=== PATIENT | female | born 1990 | race Caucasian/White ===

== ENCOUNTER 2016-09-14 15:05 | Emergency (ER) | payer MEDICAID ==
[~2016-09-14] VITALS: Ht 157.5 cm; Wt 60.5 kg
[~2016-09-14 15:05] MED LIST: IBUP-232 PO; NORC5TAB PO; ORPH100T99 PO
[2016-09-14 15:14] VITALS: BP 132/79; PULSE 97; RESP 18; TEMP 98.6; O2SAT 100
[2016-09-14 15:29] LABS: BLOOD, URINE LARGE (NEG); GLUCOSE,URINE NEG (NEG); KETONE, URINE NEG (NEG); NITRITE,URINE NEG (NEG); PH, URINE 6.5 (5.0-8.5)
[2016-09-14 16:22] LABS: METHOD OF COLLECTION VOIDED; URINE COLOR LIGHT-RED (YELLW/STRAW)
[2016-09-14 16:23] LABS: RBC, URINE INNUM /hpf (0-3)
[2016-09-14 16:24] LABS: BACTERIA, URINE RARE /hpf; COMMENT (UR) CULTURE INDICATED; CULTURE IF INDICATED CULTURE INDICATED; SQUAMOUS EPITHELIAL CELL URINE >8 /hpf (0-5)
[2016-09-14] MEDS ORDERED: MORPHINE SULFATE 4 MG/ML INJ IM ONE (17:00)
--- NOTE | 2016-09-14 17:04 | PD ---
HPI . Possible miscarriage Chief Complaint: Related Problem Time Seen by Provider: 16:24 Travel History International Travel<30 days: No Contact w/Intl Traveler<30days: No Traveled to known affect area: No History of Present Illness HPI Patient presents complaining with vaginal spotting for the last couple days. Spotting had actually improved. However, she developed pelvic cramping today associated with the passage of tissue. She reports last normal menstrual period was July 17. She reports 2 positive home tests a couple of weeks ago. [facility] Past Medical History Medical History: Denies Significant Hx Diminished Hearing: No Immunizations Current: Yes Tetanus Vaccination: > 5 Years Influenza Vaccination: No ?: Past Surgical History Oral Surgery: Yes (WISDOM TEETH X 4) Social History Alcohol Use: No Tobacco Use: Yes (5-7 CIGS DAILY) Substance Use: No Allergies-Medications (Allergen,Severity, Reaction): Coded Allergies: Penicillin (Verified Allergy, Unknown, 09/14/16) Reported Meds & Prescriptions Reported Meds & Active Scripts Active No Active Prescriptions or Reported Medications Review of Systems Except as stated in HPI: all other systems reviewed are Neg Genitourinary: Positive: Pelvic Pain, Vaginal Bleeding Physical Exam Narrative GENERAL: Anxious appearing. SKIN: Warm and dry. HEAD: Atraumatic. Normocephalic. EYES: Pupils equal and round. ENT: No nasal bleeding or discharge. Mucous membranes pink and moist. NECK: Trachea midline. CARDIOVASCULAR: Regular rate and rhythm. RESPIRATORY: No accessory muscle use. GASTROINTESTINAL: Abdomen soft, non-tender, nondistended. : Normal female. Blood in the vaginal vault notable with a normal menstrual cycle. Cervical os is closed. She does have tenderness to palpation on bimanual exam and there is a mass palpated in the right adnexa. MUSCULOSKELETAL: No obvious deformities. No edema. NEUROLOGICAL: Awake and alert. No obvious cranial nerve deficits. Motor grossly within normal limits. Normal speech. PSYCHIATRIC: Appropriate mood and affect; insight and judgment normal. Data Data Last Documented VS Vital Signs Date Time Temp Pulse Resp B/P Pulse Ox O2 Delivery O2 Flow Rate FiO2 09/14/16 18:50 16 09/14/16 15:14 98.6 97 132/79 100 Orders Urinalysis - C+S If Indicated (09/14/16 15:09) Ed Urine Pregnancytest Poc (09/14/16 15:09) Urine Culture (09/14/16 15:20) Gc And Chlamydia Pcr (09/14/16 16:25) Wet Prep Profile (09/14/16 16:25) Beta Hcg (Quant/Titer) (09/14/16 16:59) Morphine Inj (Morphine Inj) (09/14/16 17:00) Morphine Inj (Morphine Inj) (09/14/16 18:00) Ceftriaxone Inj (Rocephin Inj) (09/14/16 18:15) Azithromycin Inj (Zithromax Inj) (09/14/16 18:15) Us Pelvis Comp W Transvaginal (09/14/16 ) Labs Laboratory Tests Test 09/14/16 09/14/16 09/14/16 15:20 17:00 17:20 Urine Collection Type VOIDED Urine Color LIGHT-RED Urine Turbidity CLEAR Urine pH 6.5 Urine Specific [place] 1.004 Urine Protein 100 mg/dL Urine Glucose (UA) NEG mg/dL Urine Ketones NEG mg/dL Urine Occult Blood LARGE Urine Nitrite NEG Urine Bilirubin NEG Urine Leukocyte Esterase SMALL Urine RBC INNUM /hpf Urine WBC 9-14 /hpf Urine WBC Clumps FEW Urine Squamous Epithelial >8 /hpf Cells Urine Bacteria RARE /hpf Microscopic Urinalysis Comment CULTURE INDICATED Clue Cells (Wet Prep) NONE SEEN Vaginal Trichomonas (Wet Prep) NONE SEEN Vaginal Yeast (Wet Prep) NONE SEEN Human Chorionic Gonadotropin, LESS THAN 1 Quant MIU/ML MDM Medical Decision Making Medical Screen Exam Complete: Yes Emergency Medical Condition: Yes Differential Diagnosis Differential diagnosis of pelvic pain includes but is not limited to UTI, PID, ectopic , spontaneous AB, constipation, viral illness Narrative Course Patient presents for evaluation of vaginal bleeding and pelvic pain in the setting of positive home test and amenorrhea since July 17. She has a mass in her right adnexa on exam. Both her urine and serum hCG are negative. Ultrasound does not show a TOA. I have treated her for possible STD with Rocephin and Zithromax IV here. I will discharge her and additional 4 day course of PO Zithromax. 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 Med/Other Pt SpecificInfo: Prescription(s) given Scripts Azithromycin (Zithromax)250 Mg Img960 Mg PO DAILY #4 TAB Ref 0 Prov:Mari Shirley MD 09/14/16 Ibuprofen 800 Mg Knd245 Mg PO Q8H PRN (pain) #30 TAB Ref 0 Prov:Mari Shirley MD 09/14/16 Tramadol (Ultram)50 Mg Tab50 Mg PO Q4H PRN (PAIN) #12 TAB Ref 0 Prov:Mari Shirley MD 09/14/16 Disposition: 01 DISCHARGE HOME Condition: Stable Mari Shirley MD Sep 14, 2016 17:04
[2016-09-14 17:43] LABS: BETA HCG QUANT LESS THAN 1 MIU/ML (0-5)
[2016-09-14] MEDS ORDERED: MORPHINE SULFATE 4 MG/ML INJ IV ONE (18:00)
[2016-09-14] MEDS ORDERED: AZITHROMYCIN INJ 500 MG in SODIUM CHLOR 0.9% 250 ML INJ 250 ML IV ONE (18:15)
[2016-09-14] MEDS ORDERED: cefTRIAXone INJ 1,000 MG in SODIUM CHLORIDE 0.9% INJ 100 ML IV ONE (18:15)
--- NOTE | 2016-09-14 19:17 | RADHPO ---
EXAM DATE/TIME: 09/14/2016 18:19 [facility] COMPARISON: No previous studies available for comparison. INDICATIONS : Pelvic pain. MEDICAL HISTORY : History of pregnancies. Pelvic pain. SURGICAL HISTORY : Oral surgery, wisdom teeth. ENCOUNTER: Initial ACUITY: 4-6 days PAIN SCORE: 10/10 LOCATION: Bilateral pelvis MEASUREMENTS: UTERUS: 9.4 x 5.8 x 4.5 cm ENDOMETRIAL STRIPE: 3 mm RIGHT OVARY: 2.7 x 2.0 x 3.1 cm LEFT OVARY: 3.2 x 2.0 x 2.0 cm FINDINGS: UTERUS: The myometrium has homogeneous echotexture without mass. RIGHT OVARY: Ovary contains no mass or significant cystic lesion. LEFT OVARY: Ovary contains no mass or significant cystic lesion. MISCELLANEOUS: There is minimal free fluid. CONCLUSION: Minimal free fluid. No IUP is seen. Reza Hardy MD on September 14, 2016 at 19:13 Board Certified Radiologist. This report was verified electronically.
[2016-09-14] MEDS ORDERED: IBUP800T23 PO (19:25)
[2016-09-14] MEDS ORDERED: ULTR50TA5 PO (19:25)
[2016-09-14] MEDS ORDERED: ZITH250T PO (19:27)
[2016-09-14 19:34] VITALS: BP 124/83; PULSE 77; RESP 18; O2SAT 100
[2016-09-14] MEDS ORDERED: KETOROLAC TROMETHAMINE 30 MG/ML (IVP) VIAL IV PUSH ONE (20:15)
[2016-09-14 20:50] VITALS: BP 104/76; PULSE 73; RESP 18; O2SAT 100
[2016-09-14 20:57] VITALS: RESP 18
[2016-09-15 00:12] LABS: CHLAMYDIA PCR NOT DETECTED (NOT DETECT); NEISSERIA PCR NOT DETECTED (NOT DETECT)
== END 2016-09-14 21:04 | disposition home or self-care (01) ==
LOC: PHED 15:05
DX: O26.859 Spotting complicating pregnancy, unspecified trimester (principal); R10.2 Pelvic and perineal pain; Z72.0 Tobacco use
CPT/HCPCS: 76830; 76856; 81001; 84702; 84703; 87086; 87210; 87491; 87591; 96365; 96367; 96375; 99284; J0456; J0696; J1885; J2270; J7050

== ENCOUNTER 2016-09-27 20:34 | Emergency (ER) | payer MEDICAID ==
[~2016-09-27] VITALS: Ht 157.5 cm; Wt 59.8 kg
[~2016-09-27 20:34] MED LIST changes: -IBUP-232 PO; +IBUP800T23 PO; -NORC5TAB PO; -ORPH100T99 PO; +ULTR50TA5 PO; +ZITH250T PO
[2016-09-27 20:36] VITALS: BP 139/84; PULSE 98; RESP 18; TEMP 98.2; O2SAT 100
[2016-09-27 20:50] LABS: BLOOD, URINE NEG (NEG); GLUCOSE,URINE NEG (NEG); KETONE, URINE NEG (NEG); NITRITE,URINE NEG (NEG)
[2016-09-27 20:53] LABS: URINE COLOR STRAW (YELLW/STRAW)
[2016-09-27 20:55] LABS: COMMENT (UR) CULT NOT INDICATED; CULTURE IF INDICATED CULT NOT INDICATED; SQUAMOUS EPITHELIAL CELL URINE 0-5 /hpf (0-5)
[2016-09-27 22:00] VITALS: BP 118/70; PULSE 84; RESP 18; O2SAT 98
--- NOTE | 2016-09-27 22:14 | PD ---
HPI Chief Complaint: Abdominal Pain Time Seen by Provider: 22:00 Travel History International Travel<30 days: No Contact w/Intl Traveler<30days: No Traveled to known affect area: No History of Present Illness HPI This 26-year-old female is complaining of right lower quadrant pain. She was here on the with right-sided abdominal pain. At that time she had had a positive home tests. test here was negative and she had an ultrasound which was negative.there was concern that she might of been having a miscarriage she has had thought she was passing tissue. She's been having abdominal pain since then. She's had a very poor appetite. The pain has been quite persistent she had vaginal bleeding until just a few days ago. She has no history of abdominal surgery. She is 3 para 1 PFSH Past Medical History Diminished Hearing: No Immunizations Current: Yes Tetanus Vaccination: Unknown Influenza Vaccination: No ?: Not LMP: 09-14-16 Past Surgical History Oral Surgery: Yes (WISDOM TEETH X 4) Social History Alcohol Use: No Tobacco Use: Yes (5-7 CIGS DAILY) Substance Use: No Allergies-Medications (Allergen,Severity, Reaction): Coded Allergies: Penicillin (Verified Allergy, Unknown, 09/27/16) Reported Meds & Prescriptions Reported Meds & Active Scripts Active No Active Prescriptions or Reported Medications Review of Systems General / Constitutional: No: Fever, Chills Eyes: No: Diploplia, Blurred Vision HENT: No: Headaches, Vertigo Cardiovascular: No: Chest Pain or Discomfort, Palpitations Respiratory: No: Cough, Shortness of Breath Gastrointestinal: Positive: Nausea, Abdominal Pain, Loss of Appetite Genitourinary: No: Frequency Musculoskeletal: No: Myalgias, Arthralgias Skin: No Rash Neurologic: No: Weakness Psychiatric: No: Anxiety Hematologic/Lymphatic: No: Easy Bruising Physical Exam Narrative GENERAL: Well-developed female SKIN: Warm and dry. HEAD: Atraumatic. Normocephalic. EYES: Pupils equal and round. No scleral icterus. No injection or drainage. ENT: No nasal bleeding or discharge. Mucous membranes pink and moist. NECK: Trachea midline. No JVD. CARDIOVASCULAR: Regular rate and rhythm. No murmur appreciated. RESPIRATORY: No accessory muscle use. Clear to auscultation. Breath sounds equal bilaterally. GASTROINTESTINAL: Abdomen soft, there is right lower quadrant tenderness, nondistended. Hepatic and splenic margins not palpable. Pelvic: Minimal discharge is present. There is some mild discomfort with movement of the cervix. There is tenderness which seems greater in the right lower quadrant tenderness MUSCULOSKELETAL: No obvious deformities. No clubbing. No cyanosis. No edema. NEUROLOGICAL: Awake and alert. No obvious cranial nerve deficits. Motor grossly within normal limits. Normal speech. PSYCHIATRIC: Appropriate mood and affect; insight and judgment normal. Data Data Last Documented VS Vital Signs Date Time Temp Pulse Resp B/P Pulse Ox O2 Delivery O2 Flow Rate FiO2 09/27/16 22:10 18 09/27/16 20:36 98.2 98 139/84 100 Orders Urinalysis - C+S If Indicated (09/27/16 20:41) Ed Urine Pregnancytest Poc (09/27/16 20:41) Complete Blood Count With Diff (09/27/16 22:09) Comprehensive Metabolic Panel (09/27/16 22:09) Ct Abd/Pel W Iv Contrast(Rout) (09/27/16 22:09) Sodium Chlor 0.9% 1000 Ml Inj (Ns 1000 M (09/27/16 22:15) Ondansetron Inj (Zofran Inj) (09/27/16 22:15) Hydromorphone Pf Inj (Dilaudid Pf Inj) (09/27/16 22:15) Labs Laboratory Tests Test 09/27/16 09/27/16 20:45 22:30 Urine Color STRAW Urine Turbidity CLEAR Urine pH 6.0 Urine Specific [place] 1.005 Urine Protein NEG mg/dL Urine Glucose (UA) NEG mg/dL Urine Ketones NEG mg/dL Urine Occult Blood NEG Urine Nitrite NEG Urine Bilirubin NEG Urine Leukocyte Esterase NEG Urine Squamous Epithelial 0-5 /hpf Cells Microscopic Urinalysis Comment CULT NOT INDICATED White Blood Count 15.1 TH/MM3 Red Blood Count 4.45 MIL/MM3 Hemoglobin 14.3 GM/DL Hematocrit 41.2 % Mean Corpuscular Volume 92.5 FL Mean Corpuscular Hemoglobin 32.1 PG Mean Corpuscular Hemoglobin 34.7 % Concent Red Cell Distribution Width 12.1 % Platelet Count 250 TH/MM3 Mean Platelet Volume 8.2 FL Neutrophils (%) (Auto) 61.4 % Lymphocytes (%) (Auto) 30.1 % Monocytes (%) (Auto) 6.0 % Eosinophils (%) (Auto) 1.6 % Basophils (%) (Auto) 0.9 % Neutrophils # (Auto) 9.4 TH/MM3 Lymphocytes # (Auto) 4.5 TH/MM3 Monocytes # (Auto) 0.9 TH/MM3 Eosinophils # (Auto) 0.2 TH/MM3 Basophils # (Auto) 0.1 TH/MM3 CBC Comment DIFF FINAL Differential Comment Sodium Level 142 MEQ/L Potassium Level 3.7 MEQ/L Chloride Level 107 MEQ/L Carbon Dioxide Level 26.3 MEQ/L Anion Gap 9 MEQ/L Blood Urea Nitrogen 7 MG/DL Creatinine 0.71 MG/DL Estimat Glomerular Filtration 98 ML/MIN Rate Random Glucose 82 MG/DL Calcium Level 9.6 MG/DL Total Bilirubin 0.3 MG/DL Aspartate Amino Transf 15 U/L (AST/SGOT) Alanine Aminotransferase 43 U/L (ALT/SGPT) Alkaline Phosphatase 48 U/L Total Protein 7.8 GM/DL Albumin 4.4 GM/DL [facility] Medical Decision Making Medical Screen Exam Complete: Yes Emergency Medical Condition: Yes Medical Record Reviewed: Yes Differential Diagnosis Differential includes appendicitis, tubo-ovarian abscess, PID Narrative Course White count is elevated at 15,000. Ultrasound was done on the and was negative. I have ordered a CT abdomen and pelvis. It is read as showing some constipation especially in the right colon and sacral region. There is a 2.2 x 1.3 cm right ovarian cyst. Trace free fluid in the pelvis. Diagnosis Primary Impression: Right ovarian cyst Scripts Peg-Electrolytes (Golytely 236 gm)4,000 Ml Soln4,000 Ml PO ONCE #1 CONTAINER Ref 0 Prov:Marco Jimenez MD 09/28/16 Oxycodone-Acetaminophen (Percocet)5-325 mg Tab1 Tab PO Q4H PRN (PAIN) #20 TAB Ref 0 Prov:Marco Jimenez MD 09/28/16 Disposition: 01 DISCHARGE HOME Condition: Stable Marco Jimenez MD Sep 27, 2016 22:14
[2016-09-27] MEDS ORDERED: ONDANSETRON HCL 4 MG/2 ML VIAL IV PUSH ONE (22:15)
[2016-09-27] MEDS ORDERED: HYDROmorphone HCL PF 1 MG/ML VIAL IV PUSH ONE (22:15)
[2016-09-27] MEDS ORDERED: SODIUM CHLOR 0.9% 1000 ML INJ 1,000 ML IV ONE (22:15)
[2016-09-27 23:03] LABS: AUTOMATED NEUTROPHIL # 9.4 TH/MM3 (1.8-7.7); BASOPHIL # 0.1 TH/MM3 (0-0.2); BASOPHIL % 0.9 % (0.0-2.0); EOSINOPHIL # 0.2 TH/MM3 (0-0.4); EOSINOPHIL % 1.6 % (0.0-4.0); HEMATOCRIT 41.2 % (35.0-46.0); HEMO FLAGS DIFF FINAL; LYMPH % 30.1 % (9.0-44.0); LYMPHOCYTE # 4.5 TH/MM3 (1.0-4.8); MEAN CELL VOLUME 92.5 FL (80.0-100.0); MEAN CORPUSCULAR HEMOGLOBIN 32.1 PG (27.0-34.0); MEAN CORPUSCULAR HGB CONC 34.7 % (32.0-36.0); NEUT % 61.4 % (16.0-70.0); PLATELET COUNT 250 TH/MM3 (150-450); RED BLOOD COUNT 4.45 MIL/MM3 (4.00-5.30); RED CELL DISTRIBUTION WIDTH 12.1 % (11.6-17.2); WHITE BLOOD COUNT 15.1 TH/MM3 (4.0-11.0)
[2016-09-27 23:10] LABS: CHLORIDE 107 MEQ/L (98-107); POTASSIUM 3.7 MEQ/L (3.5-5.1); SODIUM (NA) 142 MEQ/L (136-145)
[2016-09-27 23:14] LABS: ANION GAP 9 MEQ/L (5-15); BICARBONATE 26.3 MEQ/L (21.0-32.0); BLOOD UREA NITROGEN 7 MG/DL (7-18)
[2016-09-27 23:17] LABS: ALT (GPT) 43 U/L (10-53); AST (GOT) 15 U/L (15-37); GLOMERULAR FILTRATION RATE 98 ML/MIN (>89)
[2016-09-27 23:18] LABS: TOTAL BILIRUBIN ADULT 0.3 MG/DL (0.2-1.0)
[2016-09-27 23:20] LABS: ALKALINE PHOSPHATASE 48 U/L (45-117)
[2016-09-27 23:50] VITALS: BP 112/72; PULSE 76; RESP 18; O2SAT 98
[2016-09-27] MEDS ORDERED: IOHEXOL 350 MG/ML 10 ML VIAL (for RAD DIAG) IV ONE (23:53)
--- NOTE | 2016-09-28 00:11 | RADHPO ---
EXAM DATE/TIME: 09/27/2016 23:37 [facility] COMPARISON: No previous studies available for comparison. INDICATIONS : Right lower quadrant pain. IV CONTRAST: 100 cc Omnipaque 350 (iohexol) IV ORAL CONTRAST: No oral contrast ingested. RADIATION DOSE: 6.26 CTDIvol (mGy) MEDICAL HISTORY : None SURGICAL HISTORY : None. ENCOUNTER: Initial ACUITY: 2 days PAIN SCALE: 6/10 LOCATION: Right lower quadrant TECHNIQUE: Volumetric scanning of the abdomen and pelvis was performed. Using automated exposure control and ad justment of the mA and/or kV according to patient size, radiation dose was kept as low as reasonably achievable to obtain optimal diagnostic quality images. FINDINGS: Lung bases are clear. No acute findings in the liver, spleen, adrenals, kidneys or pancreas. There is mild constipation, especially in the proximal right colon and cecal region. No bowel obstruc tion. There is no free air. There is a small amount of free fluid in the pelvis. There is a 2.2 x 1.3 cm right ovarian cyst. No acute bony abnormalities. CONCLUSION: 1. Mild constipation, especially in the right colon and cecal region. 2. 2.2 x 1.3 cm right ovarian cyst. Trace free fluid in the pelvis. No free air. Aaron Simms MD on September 28, 2016 at 0:04 Board Certified Radiologist. This report was verified electronically.
[2016-09-28] MEDS ORDERED: PERC5TAB12 PO (00:15)
[2016-09-28] MEDS ORDERED: COLY4000S PO (00:15)
[2016-09-28] MEDS ORDERED: HYDROmorphone HCL PF 1 MG/ML VIAL IV PUSH ONE (00:30)
[2016-09-28 01:13] VITALS: BP 114/76; PULSE 78; RESP 18; O2SAT 98
== END 2016-09-28 01:36 | disposition home or self-care (01) ==
LOC: PHED 20:34
DX: N83.201 Unspecified ovarian cyst, right side (principal); Z72.0 Tobacco use
CPT/HCPCS: 74177; 80053; 81001; 84703; 85025; 96361; 96374; 96375; 96376; 99284; J1170; J2405; J7030; Q9967

== ENCOUNTER 2016-12-28 16:58 | Emergency (ER) | payer MEDICAID ==
[~2016-12-28] VITALS: Ht 160 cm; Wt 57.5 kg
[~2016-12-28 16:58] MED LIST changes: +COLY4000S PO; -IBUP800T23 PO; +PERC5TAB12 PO; -ULTR50TA5 PO; -ZITH250T PO
[2016-12-28 17:02] VITALS: BP 149/84; PULSE 101; RESP 16; TEMP 98.6; O2SAT 100
[2016-12-28] MEDS ORDERED: SODIUM CHLOR 0.9% 1000 ML INJ 1,000 ML IV SCH (17:44)
[2016-12-28] MEDS ORDERED: SODIUM CHLORIDE 0.9% FLUSH 10 ML FLUSH IV FLUSH PRN (17:45)
[2016-12-28] MEDS ORDERED: MORPHINE SULFATE 4 MG/ML INJ IV PUSH ONE (17:45)
--- NOTE | 2016-12-28 18:01 | PD ---
HPI Chief Complaint: Flank/Kidney Pain Time Seen by Provider: 17:37 Travel History International Travel<30 days: No Contact w/Intl Traveler<30days: No Traveled to known affect area: No History of Present Illness HPI 26-year-old female here for evaluation of left flank and left abdominal pain. Patient reports that the symptoms; on for last 3 days. She states she was seen in urgent care facility who told her that she may have PID and gave her a prescription for doxycycline which she has not started. Pain is moderate, constant, intermittently worse at times, worse with movements. She has had some constipation. Mild nausea but no vomiting. LMP was 12/08/16. She has been having some dysuria and has noted some hematuria. She is sexually active with one partner whom she has been with for the last 5 years and believe she is in a monogamous relationship. She had some scant vaginal discharge. [facility] Past Medical History Medical History: Denies Significant Hx Diminished Hearing: No Immunizations Current: Yes ?: Not LMP: 12/08/2016 Past Surgical History Oral Surgery: Yes (WISDOM TEETH X 4) Social History Alcohol Use: No Tobacco Use: Yes (5-7 CIGS DAILY) Substance Use: No Allergies-Medications (Allergen,Severity, Reaction): Coded Allergies: Penicillin (Verified Allergy, Unknown, 12/28/16) Reported Meds & Prescriptions Reported Meds & Active Scripts Active No Active Prescriptions or Reported Medications Review of Systems Except as stated in HPI: all other systems reviewed are Neg Physical Exam Narrative GENERAL: Well-developed, well-nourished, dribble, no acute distress. SKIN: Focused skin assessment warm/dry. No rash. HEAD: Atraumatic. Normocephalic. EYES: Pupils equal and round. No scleral icterus. No injection or drainage. ENT: Mucous membranes pink and moist. NECK: Trachea midline. No JVD. CARDIOVASCULAR: Regular rate and rhythm. No murmur appreciated. RESPIRATORY: No accessory muscle use. Clear to auscultation. Breath sounds equal bilaterally. GASTROINTESTINAL: Abdomen soft, nondistended. Mild left mid and left lower quadrant tenderness without peritoneal signs. Rest of abdomen is soft and nontender. No hernias. : Exam performed in the presence of female nurse. Normal external genitalia. Normal cervix. Scant blood coming from cervical os. No cervical lacerations. Mild uterine tenderness. No CMT. No adnexal masses or tenderness. MUSCULOSKELETAL: No obvious deformities. No clubbing. No cyanosis. No edema. No CVA tenderness. NEUROLOGICAL: Awake and alert. No obvious cranial nerve deficits. Motor grossly within normal limits. Normal speech. PSYCHIATRIC: Appropriate mood and affect; insight and judgment normal. Data Data Last Documented VS Vital Signs Date Time Temp Pulse Resp B/P Pulse Ox O2 Delivery O2 Flow Rate FiO2 12/28/16 18:47 18 12/28/16 18:14 99 Room Air 12/28/16 17:02 98.6 101 149/84 Orders Complete Blood Count With Diff (12/28/16 17:44) Comprehensive Metabolic Panel (12/28/16 17:44) Lipase (12/28/16 17:44) Prothrombin Time / Inr (Pt) (12/28/16 17:44) Act Partial Throm Time (Ptt) (12/28/16 17:44) Urinalysis - C+S If Indicated (12/28/16 17:44) Ct Abd/Pel W Iv Contrast(Rout) (12/28/16 17:44) Iv Access Insert/Monitor (12/28/16 17:44) Ecg Monitoring (12/28/16 17:44) Oximetry (12/28/16 17:44) Morphine Inj (Morphine Inj) (12/28/16 17:45) Sodium Chlor 0.9% 1000 Ml Inj (Ns 1000 M (12/28/16 17:44) Sodium Chloride 0.9% Flush (Ns Flush) (12/28/16 17:45) Ed Urine Pregnancytest Poc (12/28/16 17:44) Gc And Chlamydia Pcr (12/28/16 17:44) Wet Prep Profile (12/28/16 17:44) Ketorolac Inj (Toradol Inj) (12/28/16 19:30) Labs Laboratory Tests Test 12/28/16 12/28/16 12/28/16 18:00 18:10 18:42 Urine Color STRAW Urine Turbidity CLEAR Urine pH 7.5 Urine Specific [place] 1.006 Urine Protein NEG mg/dL Urine Glucose (UA) NEG mg/dL Urine Ketones NEG mg/dL Urine Occult Blood NEG Urine Nitrite NEG Urine Bilirubin NEG Urine Leukocyte Esterase SMALL Urine WBC 0-2 /hpf Urine Squamous Epithelial 0-5 /hpf Cells Urine Bacteria FEW /hpf Microscopic Urinalysis Comment CULT NOT INDICATED White Blood Count 6.9 TH/MM3 Red Blood Count 4.07 MIL/MM3 Hemoglobin 13.3 GM/DL Hematocrit 38.1 % Mean Corpuscular Volume 93.7 FL Mean Corpuscular Hemoglobin 32.6 PG Mean Corpuscular Hemoglobin 34.8 % Concent Red Cell Distribution Width 12.9 % Platelet Count 216 TH/MM3 Mean Platelet Volume 8.3 FL Neutrophils (%) (Auto) 45.3 % Lymphocytes (%) (Auto) 42.6 % Monocytes (%) (Auto) 7.5 % Eosinophils (%) (Auto) 4.0 % Basophils (%) (Auto) 0.6 % Neutrophils # (Auto) 3.1 TH/MM3 Lymphocytes # (Auto) 3.0 TH/MM3 Monocytes # (Auto) 0.5 TH/MM3 Eosinophils # (Auto) 0.3 TH/MM3 Basophils # (Auto) 0.0 TH/MM3 CBC Comment DIFF FINAL Differential Comment Prothrombin Time 11.3 SEC Prothromb Time International 1.0 RATIO Ratio Activated Partial 29.5 SEC Thromboplast Time Sodium Level 142 MEQ/L Potassium Level 3.6 MEQ/L Chloride Level 108 MEQ/L Carbon Dioxide Level 29.7 MEQ/L Anion Gap 4 MEQ/L Blood Urea Nitrogen 9 MG/DL Creatinine 0.70 MG/DL Estimat Glomerular Filtration 100 ML/MIN Rate Random Glucose 78 MG/DL Calcium Level 8.7 MG/DL Total Bilirubin 0.3 MG/DL Aspartate Amino Transf 22 U/L (AST/SGOT) Alanine Aminotransferase 42 U/L (ALT/SGPT) Alkaline Phosphatase 40 U/L Total Protein 6.7 GM/DL Albumin 3.9 GM/DL Lipase 99 U/L Clue Cells (Wet Prep) NONE SEEN Vaginal Trichomonas (Wet Prep) NONE SEEN Vaginal Yeast (Wet Prep) NONE SEEN MDM Medical Decision Making Medical Screen Exam Complete: Yes Emergency Medical Condition: Yes Medical Record Reviewed: Yes Differential Diagnosis Nephrolithiasis, ureterolithiasis, UTI, pyelonephritis, colitis, cystitis, appendicitis, PID, , ectopic Narrative Course Vital signs reviewed. CBC is unremarkable. CMP is unremarkable. Lipase is 99. UA shows small leukocyte esterase, few bacteria, not suggestive of UTI. Wet prep is negative for yeast, negative for clue cells, negative for Trichomonas. CT abdomen pelvis: 1.9 cm hemorrhagic cyst involving the left ovary. Small volume of free fluid in the pelvis. Patient was made aware of all findings. She was given a dose of morphine and is resting comfortably. There are no peritoneal signs on exam. I do not believe that she is having ovarian torsion. She is stable for discharge home with outpatient follow-up with her primary care physician this week. She was informed on when to return to the emergency department pitcher verbalizes understanding and agreement with plan. Diagnosis Primary Impression: Left ovarian cyst Referrals: Primary Care Physician 3 days Additional Instructions: Follow-up with your primary care physician this week. Return to the emergency department for worsening symptoms or any other concerns. Scripts Hydrocodone-Acetaminophen (Lortab)5-325 Mg Tab1 Tab PO Q6H PRN (PAIN) #10 TAB Ref 0 Prov:Jay Rdz MD 12/28/16 Disposition: 01 DISCHARGE HOME Condition: Stable Jay Rdz MD December 28, 2016 18:01
[2016-12-28 18:14] VITALS: O2SAT 99
[2016-12-28 18:27] LABS: AUTOMATED NEUTROPHIL # 3.1 TH/MM3 (1.8-7.7); BASOPHIL % 0.6 % (0.0-2.0); EOSINOPHIL # 0.3 TH/MM3 (0-0.4); HEMATOCRIT 38.1 % (35.0-46.0); HEMO FLAGS DIFF FINAL; LYMPH % 42.6 % (9.0-44.0); MEAN CELL VOLUME 93.7 FL (80.0-100.0); MEAN CORPUSCULAR HEMOGLOBIN 32.6 PG (27.0-34.0); MEAN CORPUSCULAR HGB CONC 34.8 % (32.0-36.0); MONO % 7.5 % (0.0-8.0); NEUT % 45.3 % (16.0-70.0); PLATELET COUNT 216 TH/MM3 (150-450); RED BLOOD COUNT 4.07 MIL/MM3 (4.00-5.30); RED CELL DISTRIBUTION WIDTH 12.9 % (11.6-17.2); WHITE BLOOD COUNT 6.9 TH/MM3 (4.0-11.0)
[2016-12-28 18:33] LABS: BLOOD, URINE NEG (NEG); GLUCOSE,URINE NEG (NEG); KETONE, URINE NEG (NEG); NITRITE,URINE NEG (NEG); PH, URINE 7.5 (5.0-8.5)
[2016-12-28 18:36] LABS: CHLORIDE 108 MEQ/L (98-107); POTASSIUM 3.6 MEQ/L (3.5-5.1); SODIUM (NA) 142 MEQ/L (136-145)
[2016-12-28 18:39] LABS: APTT (PATIENT) 29.5 SEC (24.3-30.1); PROTHROMBIN TIME - PATIENT 11.3 SEC (9.8-11.6)
[2016-12-28 18:40] LABS: ANION GAP 4 MEQ/L (5-15); BICARBONATE 29.7 MEQ/L (21.0-32.0); BLOOD UREA NITROGEN 9 MG/DL (7-18)
[2016-12-28 18:43] LABS: ALT (GPT) 42 U/L (10-53); AST (GOT) 22 U/L (15-37); GLOMERULAR FILTRATION RATE 100 ML/MIN (>89)
[2016-12-28 18:44] LABS: URINE COLOR STRAW (YELLW/STRAW)
[2016-12-28 18:44] LABS: TOTAL BILIRUBIN ADULT 0.3 MG/DL (0.2-1.0)
[2016-12-28 18:45] LABS: BACTERIA, URINE FEW /hpf; COMMENT (UR) CULT NOT INDICATED; CULTURE IF INDICATED CULT NOT INDICATED; SQUAMOUS EPITHELIAL CELL URINE 0-5 /hpf (0-5); WBC, URINE 0-2 /hpf (0-5)
[2016-12-28 18:46] LABS: ALKALINE PHOSPHATASE 40 U/L (45-117)
--- NOTE | 2016-12-28 19:11 | RADHPO ---
EXAM DATE/TIME: 12/28/2016 18:48 [facility] COMPARISON: CT ABDOMEN & PELVIS W CONTRAST, September 27, 2016, 23:37. INDICATIONS : Left flank pain for one week. IV CONTRAST: 100 cc Omnipaque 350 (iohexol) IV ORAL CONTRAST: No oral contrast ingested. RADIATION DOSE: 5.38 CTDIvol (mGy) MEDICAL HISTORY : None SURGICAL HISTORY : None. ENCOUNTER: Initial ACUITY: 1 week PAIN SCALE: 6/10 LOCATION: Left flank TECHNIQUE: Volumetric scanning of the abdomen and pelvis was performed. Using automated exposure control and ad justment of the mA and/or kV according to patient size, radiation dose was kept as low as reasonably achievable to obtain optimal diagnostic quality images. FINDINGS: LOWER LUNGS: The visualized lower lungs are clear. LIVER: Homogeneous density without lesion. There is no dilation of the biliary tree. No calcified gallston es. SPLEEN: Normal size without lesion. PANCREAS: Within normal limits. KIDNEYS: Normal in size and shape. There is no mass, stone or hydronephrosis. ADRENAL GLANDS: Within normal limits. VASCULAR: There is no aortic aneurysm. BOWEL/MESENTERY: The stomach, small bowel, and colon demonstrate no acute abnormality. There is no free intraperitone al air or fluid. ABDOMINAL WALL: Within normal limits. RETROPERITONEUM: There is no lymphadenopathy. BLADDER: No wall thickening or mass. REPRODUCTIVE: There is a 1.9 cm high attenuation oval-shaped focus within the left adnexa felt to be involving the left ovary. Small amount of free fluid within the cul-de-sac. The uterus is unremarkable. INGUINAL: There is no lymphadenopathy or hernia. MUSCULOSKELETAL: Within normal limits for patient age. CONCLUSION: 1. 1.9 cm hemorrhagic cyst involving left ovary. Small volume of free fluid in the pelvis. Billy Peters Jr., MD on December 28, 2016 at 19:06 Board Certified Radiologist. This report was verified electronically.
[2016-12-28 19:25] VITALS: BP 117/76; PULSE 83; RESP 18; O2SAT 99
[2016-12-28] MEDS ORDERED: HYDR-3533 PO (19:26)
[2016-12-28] MEDS ORDERED: KETOROLAC TROMETHAMINE 30 MG/ML (IVP) VIAL IV PUSH ONE (19:30)
[2016-12-28] MEDS ORDERED: IOHEXOL 350 MG/ML 10 ML VIAL (for RAD DIAG) IV ONE (20:03)
[2016-12-29 00:01] LABS: CHLAMYDIA PCR NOT DETECTED (NOT DETECT); NEISSERIA PCR NOT DETECTED (NOT DETECT)
== END 2016-12-28 20:02 | disposition home or self-care (01) ==
LOC: PHED 16:58
DX: N83.202 Unspecified ovarian cyst, left side (principal); K59.00 Constipation, unspecified; F17.210 Nicotine dependence, cigarettes, uncomplicated; Z88.0 Allergy status to penicillin
CPT/HCPCS: 74177; 80053; 81001; 83690; 84703; 85025; 85610; 85730; 87210; 87491; 87591; 96361; 96374; 96375; 99285; J1885; J2270; J7030; Q9967

== ENCOUNTER 2017-01-31 21:34 | Emergency (ER) | payer MEDICAID ==
[~2017-01-31] VITALS: Ht 157.5 cm; Wt 56.0 kg
[~2017-01-31 21:34] MED LIST changes: -COLY4000S PO; +HYDR-3533 PO; -PERC5TAB12 PO
[2017-01-31 21:36] VITALS: BP 125/79; PULSE 85; RESP 18; TEMP 98.2; O2SAT 100
[2017-01-31 21:52] VITALS: BP 140/85; PULSE 83; RESP 16; O2SAT 100
[2017-01-31 22:07] VITALS: BP 140/85; PULSE 83; RESP 16; O2SAT 100
--- NOTE | 2017-01-31 22:08 | PD ---
HPI Chief Complaint: Cardiac Complaint Time Seen by Provider: 22:01 Travel History International Travel<30 days: No Contact w/Intl Traveler<30days: No Traveled to known affect area: No History of Present Illness HPI The patient is a 27-year-old female with no history of heart disease who complains of a sharp and heavy sensation in the substernal region of her chest. 2 days. The pain is intermittent. The patient has had a nonproductive cough for 3 days and was on a Z-Thai for an ear infection until yesterday. The patient denies any fever. She smokes one fourth pack a day. Her only medical problems include ovarian cysts and metromenorrhagia. She denies any nausea or shortness of breath. She denies any radiation of pain. PFSH Past Medical History Diminished Hearing: No Immunizations Current: Yes Tetanus Vaccination: Unknown Influenza Vaccination: No ?: Not LMP: 01/08/17 Ovarian Cysts: Yes Past Surgical History Oral Surgery: Yes (WISDOM TEETH X 4) Social History Alcohol Use: No Tobacco Use: Yes (5-7 CIGS DAILY) Substance Use: No Allergies-Medications (Allergen,Severity, Reaction): Coded Allergies: Penicillin (Verified Allergy, Unknown, 01/31/17) Reported Meds & Prescriptions Reported Meds & Active Scripts Active Lortab (Hydrocodone-Acetaminophen) 5-325 Mg Tab 1 Tab PO Q6H PRN Review of Systems Except as stated in HPI: all other systems reviewed are Neg Physical Exam Narrative GENERAL: The patient is alert, oriented 3 and slight apparent distress with her chest pain. Her vital signs are normal. SKIN: Focused skin assessment warm/dry. HEAD: Atraumatic. Normocephalic. EYES: Pupils equal and round. No scleral icterus. No injection or drainage. ENT: No nasal bleeding or discharge. Mucous membranes pink and moist. NECK: Trachea midline. No JVD. CARDIOVASCULAR: Regular rate and rhythm. No murmur appreciated. I Can completely reproduce the patient's pain by pressing on the chest wall at the chondral junctions where she perceives her pain. RESPIRATORY: No accessory muscle use. Clear to auscultation. Breath sounds equal bilaterally. No rubs are heard. GASTROINTESTINAL: Abdomen soft, non-tender, nondistended. Hepatic and splenic margins not palpable. MUSCULOSKELETAL: No obvious deformities. No clubbing. No cyanosis. No edema. NEUROLOGICAL: Awake and alert. No obvious cranial nerve deficits. Motor grossly within normal limits. Normal speech. PSYCHIATRIC: Appropriate mood and affect; insight and judgment normal. Data Data Last Documented VS Vital Signs Date Time Temp Pulse Resp B/P Pulse Ox O2 Delivery O2 Flow Rate FiO2 01/31/17 22:07 83 16 140/85 100 Room Air 01/31/17 21:36 98.2 Orders Electrocardiogram (01/31/17 22:01) Basic Metabolic Panel (Bmp) (01/31/17 22:01) Ckmb (Isoenzyme) Profile (01/31/17 22:01) Complete Blood Count With Diff (01/31/17 22:) Troponin I (01/31/17 22:) Ecg Monitoring (01/31/17 22:) Bilateral Bp Monitoring (01/31/17 22:01) Iv Access Insert/Monitor (01/31/17 22:) Oximetry (01/31/17 22:) Oxygen Administration (01/31/17 22:) Sodium Chloride 0.9% Flush (Ns Flush) (01/31/17 22:15) Chest, Pa & Lat (01/31/17 22:01) Urinalysis - C+S If Indicated (01/31/17 22:01) Ed Urine Pregnancytest Poc (01/31/17 22:) Ketorolac Inj (Toradol Inj) (01/31/17 22:15) Labs Laboratory Tests Test 01/31/17 01/31/17 22:00 22:15 White Blood Count 10.3 TH/MM3 Red Blood Count 4.14 MIL/MM3 Hemoglobin 13.2 GM/DL Hematocrit 38.5 % Mean Corpuscular Volume 92.9 FL Mean Corpuscular Hemoglobin 31.9 PG Mean Corpuscular Hemoglobin 34.3 % Concent Red Cell Distribution Width 12.1 % Platelet Count 235 TH/MM3 Mean Platelet Volume 8.4 FL Neutrophils (%) (Auto) 48.5 % Lymphocytes (%) (Auto) 40.6 % Monocytes (%) (Auto) 7.0 % Eosinophils (%) (Auto) 2.6 % Basophils (%) (Auto) 1.3 % Neutrophils # (Auto) 5.0 TH/MM3 Lymphocytes # (Auto) 4.2 TH/MM3 Monocytes # (Auto) 0.7 TH/MM3 Eosinophils # (Auto) 0.3 TH/MM3 Basophils # (Auto) 0.1 TH/MM3 CBC Comment DIFF FINAL Differential Comment Sodium Level 141 MEQ/L Potassium Level 3.5 MEQ/L Chloride Level 105 MEQ/L Carbon Dioxide Level 28.5 MEQ/L Anion Gap 8 MEQ/L Blood Urea Nitrogen 9 MG/DL Creatinine 0.69 MG/DL Estimat Glomerular Filtration 101 ML/MIN Rate Random Glucose 86 MG/DL Calcium Level 9.4 MG/DL Total Creatine Kinase 83 U/L Troponin I LESS THAN 0.02 NG/ML Urine Color STRAW Urine Turbidity CLEAR Urine pH 8.0 Urine Specific [place] 1.005 Urine Protein NEG mg/dL Urine Glucose (UA) NEG mg/dL Urine Ketones NEG mg/dL Urine Occult Blood NEG Urine Nitrite NEG Urine Bilirubin NEG Urine Leukocyte Esterase NEG Urine WBC 0-2 /hpf Urine Squamous Epithelial 0-5 /hpf Cells Microscopic Urinalysis Comment CULT NOT INDICATED MDM Medical Decision Making Medical Screen Exam Complete: Yes Emergency Medical Condition: Yes Medical Record Reviewed: Yes Interpretation(s) The EKG shows normal sinus rhythm with a rate of 83 and is completely normal except for occasional supraventricular premature complexes. The chest x-ray is normal. The CBC is normal. The basic metabolic profile is normal and the cardiac enzymes are normal. The urine [id number] test was negative for . Differential Diagnosis Chest wall pain, acute coronary syndromehighly unlikely, pulmonary embolus unlikely, esophageal pain, chest wall pain, pleuritic pain, gastrointestinal pain Narrative Course The patient has chest wall pain. I can completely reproduce the pain by pressing on the chest wall. The cardiac enzymes are normal and there is nothing suggestive and her history, EKG findings and physical exam consistent with a ulnar embolus. Diagnosis Primary Impression: Chest wall pain Additional Instructions: As we discussed, take Motrin regularly, 1 tablet 3 times daily. After 3 or 4 days usually the pain starts to subside along with the higher anti-inflammatory levels in your body. Follow-up with a primary care physician next week. Med/Other Pt SpecificInfo: Prescription(s) given Scripts Ibuprofen 600 Mg [id number] Mg PO TID #44 TAB Ref 0 Prov:Gunnar Jones MD 01/31/17 Disposition: 01 DISCHARGE HOME Condition: Stable Gunnar Jones MD Jan 31, 2017 22:08
[2017-01-31] MEDS ORDERED: SODIUM CHLORIDE 0.9% FLUSH 10 ML FLUSH IVF PRN (22:15)
[2017-01-31] MEDS ORDERED: KETOROLAC TROMETHAMINE 60 MG/2 ML (IM) VIAL IVP ONE (22:15)
[2017-01-31 22:24] LABS: BASOPHIL # 0.1 TH/MM3 (0-0.2); BASOPHIL % 1.3 % (0.0-2.0); EOSINOPHIL # 0.3 TH/MM3 (0-0.4); EOSINOPHIL % 2.6 % (0.0-4.0); HEMATOCRIT 38.5 % (35.0-46.0); HEMO FLAGS DIFF FINAL; LYMPH % 40.6 % (9.0-44.0); LYMPHOCYTE # 4.2 TH/MM3 (1.0-4.8); MEAN CELL VOLUME 92.9 FL (80.0-100.0); MEAN CORPUSCULAR HEMOGLOBIN 31.9 PG (27.0-34.0); MEAN CORPUSCULAR HGB CONC 34.3 % (32.0-36.0); NEUT % 48.5 % (16.0-70.0); PLATELET COUNT 235 TH/MM3 (150-450); RED BLOOD COUNT 4.14 MIL/MM3 (4.00-5.30); RED CELL DISTRIBUTION WIDTH 12.1 % (11.6-17.2); WHITE BLOOD COUNT 10.3 TH/MM3 (4.0-11.0)
[2017-01-31 22:33] LABS: CHLORIDE 105 MEQ/L (98-107); POTASSIUM 3.5 MEQ/L (3.5-5.1); SODIUM (NA) 141 MEQ/L (136-145)
[2017-01-31 22:36] LABS: ANION GAP 8 MEQ/L (5-15); BICARBONATE 28.5 MEQ/L (21.0-32.0)
[2017-01-31 22:37] LABS: BLOOD, URINE NEG (NEG); GLUCOSE,URINE NEG (NEG); KETONE, URINE NEG (NEG); NITRITE,URINE NEG (NEG)
[2017-01-31 22:37] LABS: BLOOD UREA NITROGEN 9 MG/DL (7-18)
[2017-01-31 22:40] LABS: GLOMERULAR FILTRATION RATE 101 ML/MIN (>89)
--- NOTE | 2017-01-31 22:41 | RADRPT ---
EXAM DATE/TIME: 01/31/2017 22:14 [facility] COMPARISON: No previous studies available for comparison. INDICATIONS : Chest pain. MEDICAL HISTORY : None. SURGICAL HISTORY : None. ENCOUNTER: Initial ACUITY: 2 days PAIN SCORE: 4/10 LOCATION: chest substernal. FINDINGS: PA and lateral views of the chest demonstrate the lungs to be symmetrically aerated without evidence of mass, infiltrate or effusion. The cardiomediastinal contours are unremarkable. Osseous structure s are intact. CONCLUSION: No acute cardiopulmonary disease. Billy Epstein MD on January 31, 2017 at 22:39 Board Certified Radiologist. This report was verified electronically.
[2017-01-31 22:44] LABS: CREATINE KINASE 83 U/L (26-192)
[2017-01-31 22:45] LABS: URINE COLOR STRAW (YELLW/STRAW)
[2017-01-31 22:46] LABS: SQUAMOUS EPITHELIAL CELL URINE 0-5 /hpf (0-5); WBC, URINE 0-2 /hpf (0-5)
[2017-01-31 22:47] LABS: COMMENT (UR) CULT NOT INDICATED; CULTURE IF INDICATED CULT NOT INDICATED
[2017-01-31 22:50] VITALS: BP 114/76; PULSE 74; RESP 16; O2SAT 99
[2017-01-31] MEDS ORDERED: IBUP-232 PO (23:00)
[2017-01-31 23:11] VITALS: RESP 16
--- NOTE | 2017-02-01 13:16 | EKG ---
Date Performed: 01/31/2017 Time Performed: 21:54:34 PTAGE: 27 years EKG: Sinus rhythm WITH OCCASIONAL SUPRAVENTRICULAR PREMATURE COMPLEXES BORDERLINE ECG PREVIOUS TRACING : 07/22/2016 19.03 Compared to prior tracing no significant change DOCTOR: Chau Devlin Interpretating Date/Time 02/01/2017 13:13:08
== END 2017-01-31 23:25 | disposition home or self-care (01) ==
LOC: PHED 21:34
DX: R07.89 Other chest pain (principal); I49.1 Atrial premature depolarization; Z72.0 Tobacco use
CPT/HCPCS: 71020; 80048; 81001; 82550; 84484; 84703; 85025; 93005; 96374; 99285; J1885